=== PATIENT | male | born 1995 | race African-American/Black ===

== ENCOUNTER 2022-07-19 09:11 | Inpatient (IN) | payer BC, OTHER ==
[2022-07-19] MEDS ORDERED: SODIUM CHLORIDE 1,000 ML IV SCH (09:15)
[2022-07-19 09:50] LABS: BASO % 0.4 % (0-2.0); EOS % 0.3 % (0-4.5); HEMATOCRIT 42.2 % (35.4-49); LYMPH % 19.5 % (8-40); MCH 29.2 pg (25.7-33.7); MCHC 33.1 g/dl (32.0-35.9); MEAN CELL VOLUME 88.1 fl (80-96); MEAN PLT VOLUME 8.1 fl (7.5-11.1); MONO % 5.8 % (3.8-10.2); PLATELET COUNT 193 10^3/uL (134-434); RBC 4.79 M/mm3 (4.00-5.60); RDW 14.4 % (11.9-15.9); WHITE BLOOD COUNT 6.2 K/mm3 (4.0-10.0)
[2022-07-19 09:58] LABS: INR 1.25 (0.83-1.09); PROTHROMBIN TIME (PATIENT) 14.4 SEC (9.7-13.0)
[2022-07-19 10:01] LABS: ACTIVATED PTT 32.8 SECONDS (25.2-36.5)
[2022-07-19 10:12] LABS: CHLORIDE 103 mmol/L (98-107); SODIUM 139 mmol/L (136-145)
[2022-07-19 10:14] LABS: CALCIUM 9.7 mg/dL (8.5-10.1)
[2022-07-19 10:15] LABS: ALBUMIN 4.3 g/dl (3.4-5.0); ANION GAP 7 MMOL/L (8-16); CO2 29 mmol/L (21-32)
[2022-07-19 10:16] LABS: GLUCOSE,RANDOM 100 mg/dL (74-106)
[2022-07-19 10:18] LABS: CREATININE 1.1 mg/dL (0.55-1.3); SGOT/AST 10 U/L (15-37); SGPT/ALT 20 U/L (13-61)
[2022-07-19 10:20] LABS: CHOLESTEROL 149 mg/dL (50-200); TOT PROT 7.3 g/dl (6.4-8.2)
[2022-07-19 10:21] LABS: BILIRUBIN,TOTAL 0.5 mg/dL (0.2-1); TRIGLYCERIDES 84 mg/dL (0-150)
[2022-07-19 10:22] LABS: LDL CHOLESTEROL (ONLY SJRH) 78 mg/dL (5-100)
[2022-07-19 10:23] LABS: ALK PHOS 36 U/L (45-117); HDL CHOLESTEROL 53 mg/dL (40-60)
[2022-07-19] MEDS ORDERED: ENOXAPARIN NA (PORCINE) 80 MG/0.8 ML DISP.SYRIN SQ ONE ×2 (11:09→14:44)
[2022-07-19] MEDS ORDERED: ATORVASTATIN CA 80 MG TABLET (FP) PO ONE (15:00)
[2022-07-19] MEDS ORDERED: ATORVASTATIN CA 80 MG TABLET (FP) ONE (15:48)
[2022-07-19] MEDS ORDERED: risperiDONE 0.5 MG TABLET ONE (22:03)
[2022-07-19] MEDS: risperiDONE 0.25 MG TABLET PO SCH (22:09)
[2022-07-20 03:22] VITALS: BMI 23.7
[2022-07-20 08:22] LABS: BASO % 0.3 % (0-2.0); EOS % 0.7 % (0-4.5); HEMATOCRIT 42.4 % (35.4-49); HEMOGLOBIN 14.3 GM/dL (11.7-16.9); LYMPH % 30.1 % (8-40); MCH 29.4 pg (25.7-33.7); MCHC 33.6 g/dl (32.0-35.9); MEAN CELL VOLUME 87.5 fl (80-96); MEAN PLT VOLUME 8.6 fl (7.5-11.1); MONO % 5.7 % (3.8-10.2); NEUT % 63.2 % (42.8-82.8); PLATELET COUNT 187 10^3/uL (134-434); RBC 4.85 M/mm3 (4.00-5.60); RDW 14.4 % (11.9-15.9)
[2022-07-20 08:34] LABS: URINE APPEARANCE CLEAR; URINE BILIRUBIN NEGATIVE (NEGATIVE); URINE COLOR YELLOW; URINE GLUCOSE (UA) NEGATIVE (NEGATIVE); URINE KETONE TRACE (NEGATIVE); URINE LEUK ESTERASE NEGATIVE (NEGATIVE); URINE NITRITE NEGATIVE (NEGATIVE); URINE PROTEIN NEGATIVE (NEGATIVE); URINE UROBILINOGEN 0.2 mg/dL (0.2-1.0)
[2022-07-20 08:42] LABS: BLOOD UREA NITROGEN 11.7 mg/dL (7-18); CALCIUM 9.5 mg/dL (8.5-10.1); MAGNESIUM 1.9 mg/dL (1.8-2.4)
[2022-07-20 08:43] LABS: ALBUMIN 3.9 g/dl (3.4-5.0)
[2022-07-20 08:45] LABS: PHOSPHOROUS 3.6 mg/dL (2.5-4.9)
[2022-07-20 08:46] LABS: CREATININE 1.1 mg/dL (0.55-1.3)
[2022-07-20 08:47] LABS: BILIRUBIN,TOTAL 0.3 mg/dL (0.2-1); TOT PROT 6.7 g/dl (6.4-8.2)
[2022-07-20] MEDS: ENOXAPARIN NA (PORCINE) 40 MG/0.4 ML DISP.SYRIN SQ SCH (10:43)
[2022-07-20] MEDS: risperiDONE 0.25 MG TABLET PO SCH (21:47)
[2022-07-21] MEDS: ENOXAPARIN NA (PORCINE) 40 MG/0.4 ML DISP.SYRIN SQ SCH (10:21)
[2022-07-21] MEDS ORDERED: LORazepam 1 MG TABLET PO ONE (11:58)
[2022-07-21] MEDS ORDERED: LORazepam 2 MG/ML SDV VIAL IVPUSH ONE (12:22)
[2022-07-21] MEDS: risperiDONE 0.25 MG TABLET PO SCH (21:33)
[2022-07-22] MEDS: DEXAMETHASONE SOD PHOSPHATE 4 MG/1 ML VIAL IVPUSH SCH ×3 (01:09→17:33)
[2022-07-22 08:45] LABS: BLOOD UREA NITROGEN 12.4 mg/dL (7-18)
[2022-07-22 08:49] LABS: CREATININE 1.2 mg/dL (0.55-1.3)
[2022-07-22] MEDS ORDERED: FAMOTIDINE 20 MG TABLET PO SCH (10:00)
[2022-07-22] MEDS: PANTOPRAZOLE 40 MG TABLET PO SCH (10:30)
[2022-07-22] MEDS: ENOXAPARIN NA (PORCINE) 40 MG/0.4 ML DISP.SYRIN SQ SCH (10:30)
[2022-07-22] MEDS: POLYETHYLENE GLYCOL (HEALTHYLAX) 3350 17 GM PACKET PO SCH (17:33)
[2022-07-22] MEDS: risperiDONE 0.25 MG TABLET PO SCH (21:03)
[2022-07-23] MEDS: DEXAMETHASONE SOD PHOSPHATE 4 MG/1 ML VIAL IVPUSH SCH ×3 (02:17→17:29)
[2022-07-23] MEDS: PANTOPRAZOLE 40 MG TABLET PO SCH (10:06)
[2022-07-23] MEDS: ENOXAPARIN NA (PORCINE) 40 MG/0.4 ML DISP.SYRIN SQ SCH (10:06)
[2022-07-23] MEDS ORDERED: POLYETHYLENE GLYCOL (HEALTHYLAX) 3350 17 GM PACKET PO SCH (17:27)
[2022-07-23] MEDS: POLYETHYLENE GLYCOL (HEALTHYLAX) 3350 17 GM PACKET PO SCH ×2 (17:28→17:29)
[2022-07-23] MEDS: risperiDONE 0.25 MG TABLET PO SCH (21:10)
[2022-07-24] MEDS: DEXAMETHASONE SOD PHOSPHATE 4 MG/1 ML VIAL IVPUSH SCH ×3 (01:12→17:39)
[2022-07-24 07:46] LABS: BASO % 0.1 % (0-2.0); HEMATOCRIT 44.6 % (35.4-49); HEMOGLOBIN 14.8 GM/dL (11.7-16.9); LYMPH % 6.4 % (8-40); MCH 29.4 pg (25.7-33.7); MCHC 33.2 g/dl (32.0-35.9); MEAN CELL VOLUME 88.6 fl (80-96); MEAN PLT VOLUME 9.1 fl (7.5-11.1); MONO % 3.2 % (3.8-10.2); NEUT % 90.3 % (42.8-82.8); PLATELET COUNT 229 10^3/uL (134-434); RBC 5.04 M/mm3 (4.00-5.60); RDW 14.1 % (11.9-15.9); WHITE BLOOD COUNT 14.7 K/mm3 (4.0-10.0)
[2022-07-24 07:55] LABS: CALCIUM 9.7 mg/dL (8.5-10.1)
[2022-07-24 07:56] LABS: MAGNESIUM 2.1 mg/dL (1.8-2.4)
[2022-07-24 07:59] LABS: PHOSPHOROUS 3.6 mg/dL (2.5-4.9)
[2022-07-24 08:40] LABS: BILIRUBIN,TOTAL 0.2 mg/dL (0.2-1)
[2022-07-24] MEDS: PANTOPRAZOLE 40 MG TABLET PO SCH (09:43)
[2022-07-24] MEDS: POLYETHYLENE GLYCOL (HEALTHYLAX) 3350 17 GM PACKET PO SCH ×2 (09:43→21:03)
[2022-07-24] MEDS: ENOXAPARIN NA (PORCINE) 40 MG/0.4 ML DISP.SYRIN SQ SCH (09:43)
[2022-07-24] MEDS: SENNOSIDES 8.6MG TABLET (FP) PO SCH (21:03)
[2022-07-24] MEDS: risperiDONE 0.25 MG TABLET PO SCH (21:03)
[2022-07-25] MEDS: DEXAMETHASONE SOD PHOSPHATE 4 MG/1 ML VIAL IVPUSH SCH ×2 (01:15→09:42)
[2022-07-25] MEDS: POLYETHYLENE GLYCOL (HEALTHYLAX) 3350 17 GM PACKET PO SCH ×2 (09:41→22:15)
[2022-07-25] MEDS: PANTOPRAZOLE 40 MG TABLET PO SCH (09:42)
[2022-07-25] MEDS: ENOXAPARIN NA (PORCINE) 40 MG/0.4 ML DISP.SYRIN SQ SCH (09:42)
[2022-07-25] MEDS: risperiDONE 0.25 MG TABLET PO SCH (22:15)
[2022-07-25] MEDS: DEXAMETHASONE 4 MG TABLET (FP) PO SCH (22:15)
[2022-07-25] MEDS: SENNOSIDES 8.6MG TABLET (FP) PO SCH (22:15)
[2022-07-26] MEDS: DEXAMETHASONE 4 MG TABLET (FP) PO SCH ×3 (05:41→21:23)
[2022-07-26] MEDS: POLYETHYLENE GLYCOL (HEALTHYLAX) 3350 17 GM PACKET PO SCH ×2 (09:09→21:24)
[2022-07-26] MEDS: PANTOPRAZOLE 40 MG TABLET PO SCH (09:09)
[2022-07-26] MEDS: ENOXAPARIN NA (PORCINE) 40 MG/0.4 ML DISP.SYRIN SQ SCH (09:09)
[2022-07-26] MEDS ORDERED: DEXAMETHASONE 4 MG TABLET (FP) PO SCH (10:00)
[2022-07-26 17:25] LABS: HEMATOCRIT 42.3 % (35.4-49); HEMOGLOBIN 14.1 GM/dL (11.7-16.9); LYMPH % 9.2 % (8-40); MCH 29.6 pg (25.7-33.7); MCHC 33.5 g/dl (32.0-35.9); MEAN CELL VOLUME 88.4 fl (80-96); MEAN PLT VOLUME 9.1 fl (7.5-11.1); MONO % 6.8 % (3.8-10.2); PLATELET COUNT 242 10^3/uL (134-434); RBC 4.78 M/mm3 (4.00-5.60); RDW 14.3 % (11.9-15.9); WHITE BLOOD COUNT 13.1 K/mm3 (4.0-10.0)
[2022-07-26 17:30] LABS: ALBUMIN 3.7 g/dl (3.4-5.0); BLOOD UREA NITROGEN 22.4 mg/dL (7-18)
[2022-07-26 17:33] LABS: CREATININE 1.2 mg/dL (0.55-1.3)
[2022-07-26 17:35] LABS: BILIRUBIN,TOTAL 0.3 mg/dL (0.2-1); TOT PROT 6.8 g/dl (6.4-8.2)
[2022-07-26] MEDS: risperiDONE 0.25 MG TABLET PO SCH (21:23)
[2022-07-26] MEDS: SENNOSIDES 8.6MG TABLET (FP) PO SCH (21:24)
[2022-07-27 06:18] VITALS: RESP 18
[2022-07-27] MEDS: DEXAMETHASONE 4 MG TABLET (FP) PO SCH ×2 (06:21→13:42)
[2022-07-27] MEDS: PANTOPRAZOLE 40 MG TABLET PO SCH (09:20)
[2022-07-27] MEDS: ENOXAPARIN NA (PORCINE) 40 MG/0.4 ML DISP.SYRIN SQ SCH (09:21)
[2022-07-27] MEDS: POLYETHYLENE GLYCOL (HEALTHYLAX) 3350 17 GM PACKET PO SCH (09:24)
[2022-07-27 09:47] LABS: HEMATOCRIT 43.6 % (35.4-49); HEMOGLOBIN 14.5 GM/dL (11.7-16.9); MCH 29.3 pg (25.7-33.7); MCHC 33.3 g/dl (32.0-35.9); MEAN CELL VOLUME 88.1 fl (80-96); MEAN PLT VOLUME 8.8 fl (7.5-11.1); PLATELET COUNT 249 10^3/uL (134-434); RBC 4.94 M/mm3 (4.00-5.60)
[2022-07-27 10:14] LABS: CALCIUM 9.2 mg/dL (8.5-10.1)
[2022-07-27 10:34] LABS: ANISOCYTOSIS 2+; MACROCYTOSIS 0; OVALOCYTE 1+
[2022-07-27 14:59] VITALS: TEMP 97.5
[2022-07-27 18:08] VITALS: BP 123/67; PULSE 76
== END 2022-07-27 20:50 | DRG 59 ==
LOC: JER 09:11 → JERBED 14:01 → J4S 23:06
PROVIDERS: ADMIT Internal Medicine; ATTEND Internal Medicine
DX: G35 Multiple sclerosis (principal); F84.0 Autistic disorder; G81.94 Hemiplegia, unspecified affecting left nondominant side; K59.00 Constipation, unspecified; R73.9 Hyperglycemia, unspecified
CPT/HCPCS: 0241U-QW; 36415; 70450-TC; 70496-TC; 70498-TC; 70547-TC; 70551-TC; 70552-TC; 72156-TC; 80048; 80053; 80061; 81003; 82550; 82553; 82962; 83036; 83735; 84100; 84484; 85025; 85610; 85730; 86618; 86850; 86900; 86901; 93005; 93010; 97116-GP; 97161-GP; 99291; A9579; C9803-CS; Q9967; U0003; U0005